=== PATIENT | male | born 1970 | race Caucasian/White ===

== ENCOUNTER 2020-12-29 03:11 | Inpatient (IN) | payer BC, SELFPAY ==
[2020-12-29] MEDS ORDERED: NA CHLORIDE 0.9% 2,000 ML ONE (03:42)
[2020-12-29 04:03] LABS: Absolute Lymphocytes (CBC) 1.3 K/uL (0.7-4.9); Basophils % 0.8 % (0-1.3); Lymphocytes % 21.7 % (15.3-44.8); MPV 8.2 fL (7.6-11.3); RBC Red Blood Cell Count 4.68 M/uL (4.33-5.43)
[2020-12-29] MEDS ORDERED: NA CHLORIDE 0.9% 1,000 ML ONE (04:12)
[2020-12-29] MEDS ORDERED: CEFTRIAXONE 1000 MG/VIAL ONE (04:19)
[2020-12-29] MEDS ORDERED: ACETAMINOPHEN 500 MG TAB ONE (04:19)
[2020-12-29] MEDS ORDERED: AZITHROMYCIN 500 MG INJ IVPB ONE (04:20)
[2020-12-29] MEDS ORDERED: NA CHLORIDE 0.9% 100 ML ONE (04:20)
[2020-12-29 04:22] LABS: BUN Blood Urea Nitrogen 7 mg/dL (7-18); Bicarbonate 25 mmol/L (21-32); Glucose Level 240 mg/dL (74-106); Potassium 3.5 mmol/L (3.5-5.1); Sodium Level 133 mmol/L (136-145); Troponin (Emerg Dept Use Only) < 0.02 ng/mL (0.0-0.045)
[2020-12-29] MEDS ORDERED: METHYLPREDNISOLONE 125 MG INJ ONE (04:58)
--- NOTE | 2020-12-29 04:58 | EDPHYS ---
Physician Documentation [facility] Name: Rigo Harmon Age: 50 yrs Sex: Male : 1970 Arrival Date: 12/29/2020 Time: 03:13 Bed 16 Private MD: ED Physician Vinnie Solano HPI: 12/29 03:40 This 50 yrs old Male presents to ER via Unassigned with complaints of rn Breathing Difficulty. 03:40 The patient has shortness of breath at rest, with light activity. Onset: The rn symptoms/episode began/occurred 2 day(s) ago. Duration: The symptoms are continuous. The patient's shortness of breath is aggravated by coughing, light activity, is alleviated by nothing. Associated signs and symptoms: Pertinent positives: productive cough, dizziness, fever, Pertinent negatives: chest pain, hemoptysis. Severity of symptoms: At their worst the symptoms were moderate in the emergency department the symptoms are unchanged. The patient has not experienced similar symptoms in the past. The patient has not recently seen a physician. Patient reports fever and cough for 2 days, does not feel well, dizziness and fatigue. Denies sick contacts. Denies smoking history or lung problems. Does state is a daily heavy drinker but states drink 8 beers today. Denies vomiting or diarrhea. No history of DVT or PE. No trauma. Historical: - Home Meds: 03:30 amlodipine 5 mg tab 1 tab once daily [Active]; metformin 500 mg Oral tr24 1 tab twice a dc2 day [Active]; valsartan-hydrochlorothiazide 320-12.5 mg Oral tab 1 tab once daily [Active]; - PMHx: 03:30 Diabetes - NIDDM; Hypertension; dc2 - Immunization history:: Adult Immunizations up to date, Client reports having NOT received the Covid vaccine. Flu vaccine is not up to date. - Family history:: not pertinent. - Social history:: Smoking status: Patient/guardian denies using tobacco, the patient reports quitting approximately 5 years ago. - Hospitalizations: : No recent hospitalization is reported. ROS: 03:40 Constitutional: + for fever Eyes: Negative for injury, pain, redness, and discharge, application development intern: Negative for injury, pain, and discharge, Neck: Negative for injury, pain, and swelling, Cardiovascular: Negative for chest pain, palpitations, and edema, Respiratory: Positive for cough and shortness of breath Abdomen/GI: Negative for abdominal pain, nausea, vomiting, diarrhea, and constipation, Back: Negative for injury and pain, MS/Extremity: Negative for injury and deformity, Skin: Negative for injury, rash, and discoloration, Neuro: Negative for headache, numbness, tingling, and seizure. Exam: 03:40 Constitutional: This is a well developed, well nourished patient who is awake, alert, rn mild tachypnea Head/Face: Normocephalic, atraumatic. Eyes: Periorbital areas with no swelling, redness, or edema. ENT: No stridor, dry mucous membranes Cardiovascular: Tachycardic, regular. Respiratory: Mild tachypnea, diminished breath sounds bilateral bases, no wheezing, no retractions Abdomen/GI: Soft, non-tender Skin: Warm, dry, no cyanosis MS/ Extremity: Pulses equal, no cyanosis. Neurovascular intact. Full, normal range of motion. Equal circumference. Neuro: Awake and alert, GCS 15 Vital Signs: 03:20 BP 180 / 107; Pulse 117; Resp 22; Temp 101.4; Pulse Ox 90% on R/A; Weight 99.79 kg; dc2 Height 5 ft. 10 in. (177.80 cm); Pain 0/10; 04:15 BP 183 / 96; Pulse 101; Resp 19; Pulse Ox 94% on 2 lpm NC; Pain 10/10; dc2 05:15 BP 158 / 81; Pulse 101; Resp 22; Temp 98.4; Pulse Ox 94% on 2 lpm NC; Pain 0/10; dc2 03:20 Body Mass Index 31.57 (99.79 kg, 177.80 cm) dc2 MDM: 03:16 Patient medically screened. rn 04:22 Differential diagnosis: Anxiety Reaction pneumonia, Pneumothorax Sepsis ETOH rn withdrawal. Data reviewed: vital signs, nurses notes, lab test result(s), radiologic studies, plain films. Data interpreted: Pulse oximetry: on room air is 90 %. Interpretation: hypoxia. Plan: O2 by NC applied. 04:56 Counseling: I had a detailed discussion with the patient and/or guardian regarding: the rn historical points, exam findings, and any diagnostic results supporting the discharge/admit diagnosis, lab results, radiology results, the need for further work-up and treatment in the hospital. Response to treatment: the patient's symptoms have mildly improved after treatment, and as a result, I will admit patient. Admission orders: after a detailed discussion of the patient's condition and case, the admit orders are written by me. 12/29 03:33 Order name: Basic Metabolic Panel 12/29 03:33 Order name: Blood Culture Adult (2) rn 12/29 03:33 Order name: CBC with Diff; Complete Time: 04:12 12/29 03:33 Order name: Lactate; Complete Time: 04:49 rn 12/29 03:33 Order name: Procalcitonin; Complete Time: 04:49 12/29 03:33 Order name: Troponin (emerg Dept Use Only) rn 12/29 03:33 Order name: Urine Microscopic Only 12/29 03:33 Order name: Strep 12/29 03:34 Order name: Basic Metabolic Panel EDCO 12/29 03:58 Order name: Glucose, Ancillary Testing; Complete Time: 04:12 EDCO 12/29 04:08 Order name: COVID-19/FLU A+B [facility] 12/29 05:01 Order name: CRP [facility] 12/29 03:33 Order name: Chest Single View XRAY 12/29 03:33 Order name: Accucheck; Complete Time: 03:59 12/29 03:33 Order name: Cardiac monitoring; Complete Time: 03:36 12/29 03:33 Order name: EKG - Nurse/Tech; Complete Time: 03:36 12/29 03:33 Order name: IV Saline Lock - Large Bore; Complete Time: 03:59 rn 12/29 05:01 Order name: DD la1 12/29 05:04 Order name: C-Reactive Protein [facility] 12/29 05:04 Order name: Ferritin [facility] 12/29 03:33 Order name: Labs collected and sent; Complete Time: 03:59 rn 12/29 03:33 Order name: O2 Per Protocol; Complete Time: 03:36 rn 12/29 03:33 Order name: O2 Sat Monitoring; Complete Time: 03:36 rn Administered Medications: 03:40 Drug: NS 0.9% (30 ml/kg) 30 ml/kg Route: IV; Rate: bolus; Site: left forearm; Delivery: dc2 Primary tubing; 05:30 Follow up: IV Status: Infusion continued upon admission; IV Intake: 2000ml dc2 04:20 Drug: Rocephin (cefTRIAXone) 1 grams Route: IV; Rate: calculated rate; Site: left dc2 antecubital; 05:07 Follow up: IV Status: Completed infusion; IV Intake: 10ml dc2 04:22 Drug: Tylenol 1000 mg Route: PO; dc2 05:07 Follow up: Response: Temperature is decreased dc2 04:23 Drug: Zithromax (azithromycin) 500 mg Route: IVPB; Rate: 100 ml/hr; Infused Over: 1 dc2 hrs; Site: left antecubital; Delivery: Primary tubing; 05:25 Follow up: IV Status: Completed infusion; IV Intake: 100ml dc2 05:00 Drug: SOLU-Medrol (methylPrednisoLONE) 125 mg Route: IVP; Site: left antecubital; dc2 05:07 Follow up: Response: No adverse reaction dc2 Disposition Summary: 12/29/20 04:57 Hospitalization Ordered Hospitalization Status: Inpatient Admission rn Condition: Stable rn Problem: new rn Symptoms: have improved rn Bed/Room Type: Standard rn Provider: Khang Solano(12/29/20 04:57) rn Location: Intensive Care Unit(12/29/20 05:11) mw Room Assignment: 1-(12/29/20 05:11) Diagnosis - Hypoxemia rn - Fever, unspecified rn - Pneumonia due to SARS-associated coronavirus rn Forms: - Medication Reconciliation Form rn - SBAR form rn Signatures: Dispatcher [employer] EDMS Liberty Batista RN RN Vinnie Solano MD MD rn Attema, Lee, CAP PARTS CUTTER-C CAP PARTS CUTTER-Cla1 SusieNaz RN RN dc2 Corrections: (The following items were deleted from the chart) 04:07 03:34 Influenza Screen (A \T\ B)+BA.LAB.BRZ ordered. EDMS EDMS 04:08 03:34 SARS-COV-2 RT PCR+MOL.LAB.BRZ ordered. EDMS EDMS 04:57 04:57 Kleber Neely rn rn 05:03 05:01 C-Reactive Protein ordered. EDMS EDMS 05:03 05:01 FERRITIN+C.LAB.BRZ ordered. EDMS EDMS 05:03 04:57 Telemetry/MedSurg (Inpatient) rn mw 05:03 04:57 rn mw 05:03 04:57 Pneumonia, unspecified organism rn rn 05:11 05:03 [facility] ER HOLD mw mw 05:11 05:03 ERHOLD- mw
--- NOTE | 2020-12-29 04:58 | ER ---
Nurse's Notes [facility] Name: Rigo Harmon Age: 50 yrs Sex: Male : 1970 Arrival Date: 12/29/2020 Time: 03:13 Bed 16 Private MD: Diagnosis: Hypoxemia;Fever, unspecified;Pneumonia due to SARS-associated coronavirus Presentation: 12/29 03:18 Chief complaint: Pt ambulate to room 16 with steady gait, female at side. dc2 03:20 Method Of Arrival: Ambulatory dc2 03:20 Coronavirus screen: Vaccine status: Patient reports being unvaccinated. cough unrelated dc2 to allergies, difficulty breathing, fever, nausea, shortness of breath, Client presents with at least one sign or symptom that may indicate coronavirus-19. Standard/surgical mask placed on the client. Provider contacted for isolation considerations. Ebola Screen: Patient negative for fever greater than or equal to 101.5 degrees Fahrenheit, and additional compatible Ebola Virus Disease symptoms Patient denies exposure to infectious person. Patient denies travel to an Ebola-affected area in the 21 days before illness onset. No symptoms or risks identified at this time. Initial Sepsis Screen: Does the patient meet any 2 criteria? Yes Does the patient have a suspected source of infection? Yes:. Risk Assessment: Do you want to hurt yourself or someone else? Patient reports no desire to harm self or others. 03:20 Acuity: LELE 3 dc2 03:30 Onset of symptoms was December 27, 2020 at 12:00. dc2 Triage Assessment: 03:30 General: Appears uncomfortable, obese, well groomed, Behavior is calm, cooperative. dc2 03:30 Respiratory: Reports shortness of breath cough that is labored breathing Airway is dc2 patent Breath sounds are diminished bilaterally. Onset: The symptoms/episode began/occurred yesterday, the patient has moderate shortness of breath. 03:30 Respiratory: Breath sounds with wheezes. dc2 05:30 Pain: Denies pain. dc2 Historical: - Home Meds: 03:30 amlodipine 5 mg tab 1 tab once daily [Active]; metformin 500 mg Oral tr24 1 tab twice a dc2 day [Active]; valsartan-hydrochlorothiazide 320-12.5 mg Oral tab 1 tab once daily [Active]; - PMHx: 03:30 Diabetes - NIDDM; Hypertension; dc2 - Immunization history:: Adult Immunizations up to date, Client reports having NOT received the Covid vaccine. Flu vaccine is not up to date. - Family history:: not pertinent. - Social history:: Smoking status: Patient/guardian denies using tobacco, the patient reports quitting approximately 5 years ago. - Hospitalizations: : No recent hospitalization is reported. Screenin:30 Abuse screen: Denies threats or abuse. Denies injuries from another. Nutritional dc2 screening: No deficits noted. Tuberculosis screening: No symptoms or risk factors identified. Never had TB. Fall Risk None identified. No fall in past 12 months (0 pts). Secondary diagnosis (15 points) No IV (0 pts). Ambulatory Aid- None/Bed Rest/Nurse Assist (0 pts). Gait- Normal/Bed Rest/Wheelchair (0 pts) Mental Status- Oriented to own ability (0 pts). Total Tay Fall Scale indicates No Risk (0-24 pts). Assessment: 03:25 Respiratory: Airway is patent Respiratory effort is even, unlabored, using tripod dc2 position, Breath sounds with wheezes bilaterally. 03:30 Cardiovascular: Rhythm is sinus tachycardia. dc2 03:30 Respiratory: Respiratory effort is even, unlabored, shallow, using tripod position. dc2 03:30 General: Appears in no apparent distress. uncomfortable, obese, well groomed, Behavior dc2 is calm, cooperative. Pain: Denies pain. Neuro: No deficits noted. Level of Consciousness is awake, alert, obeys commands, confused, Oriented to person, place, time, situation, Denies blurred vision headache. GI: No deficits noted. No signs and/or symptoms were reported involving the gastrointestinal system. Bowel sounds present X 4 quads. : No signs and/or symptoms were reported regarding the genitourinary system. Derm: No deficits noted. No signs and/or symptoms reported regarding the dermatologic system. Musculoskeletal: No deficits noted. No signs and/or symptoms reported regarding the musculoskeletal system. 03:30 Reassessment: Pt with history of HTN and DM, states has not taken any meds for the past dc2 2 weeks, when asked why, states " theyre at the pharmacy waiting to be picked up ". 03:45 Reassessment: 3 swabs for flu, strep and covid completed and sent to lab. ( [id number]). dc2 04:15 Reassessment: Lab called for phlebotomy assistance with blood cultures. Speak to Liberty santana , states someone will be by. 05:15 Reassessment: Pt instructed on need for urine sample, voices understanding. Urinal and dc2 cup at bedside. 05:15 Reassessment: Pt has received 2l of 3 bolus of normal saline in the ED, transfer to ICU dc2 with 1 full bag of NS to be infused, NIKA Hunter receiving nurse made aware. Vital Signs: 03:20 BP 180 / 107; Pulse 117; Resp 22; Temp 101.4; Pulse Ox 90% on R/A; Weight 99.79 kg; dc2 Height 5 ft. 10 in. (177.80 cm); Pain 0/10; 04:15 BP 183 / 96; Pulse 101; Resp 19; Pulse Ox 94% on 2 lpm NC; Pain 10/10; dc2 05:15 BP 158 / 81; Pulse 101; Resp 22; Temp 98.4; Pulse Ox 94% on 2 lpm NC; Pain 0/10; dc2 03:20 Body Mass Index 31.57 (99.79 kg, 177.80 cm) dc2 Vitals: 05:00 Cardiac Rhythm Assessment Sinus tach. dc2 ED Course: 03:13 Patient arrived in ED. mw2 03:16 Vinnie Solano MD is Attending Physician. rn 03:16 Naz Richards RN is Primary Nurse. dc2 03:30 No provider procedures requiring assistance completed. dc2 03:30 Arm band placed on right wrist. dc2 03:30 Patient has correct armband on for positive identification. Placed in gown. Bed in low dc2 position. Call light in reach. Side rails up X 1. Adult w/ patient. monitoring specialist on. Pulse ox on. NIBP on. Door closed. 03:38 X-ray(s) taken. dc2 03:58 Strep Sent. dc2 03:59 Basic Metabolic Panel Sent. dc2 03:59 Chest Single View XRAY Sent. dc2 03:59 Basic Metabolic Panel Sent. dc2 03:59 CBC with Diff Sent. dc2 03:59 Troponin (emerg Dept Use Only) Sent. dc2 03:59 Lactate Sent. dc2 03:59 Procalcitonin Sent. dc2 04:02 Chest Single View XRAY In Process Unspecified. EDMS 04:04 Blood Culture Adult (2) Sent. dc2 04:38 Triage completed. dc2 04:52 Admitting physician to see patient. dc2 04:56 Kleber Neely DO is Hospitalizing Provider. rn 04:57 Khang Solano MD is Hospitalizing Provider. rn 05:15 IV is patent, with fluids infusing freely, Patient admitted, IV remains in place. dc2 Administered Medications: 03:40 Drug: NS 0.9% (30 ml/kg) 30 ml/kg Route: IV; Rate: bolus; Site: left forearm; Delivery: dc2 Primary tubing; 05:30 Follow up: IV Status: Infusion continued upon admission; IV Intake: 2000ml dc2 04:20 Drug: Rocephin (cefTRIAXone) 1 grams Route: IV; Rate: calculated rate; Site: left dc2 antecubital; 05:07 Follow up: IV Status: Completed infusion; IV Intake: 10ml dc2 04:22 Drug: Tylenol 1000 mg Route: PO; dc2 05:07 Follow up: Response: Temperature is decreased dc2 04:23 Drug: Zithromax (azithromycin) 500 mg Route: IVPB; Rate: 100 ml/hr; Infused Over: 1 dc2 hrs; Site: left antecubital; Delivery: Primary tubing; 05:25 Follow up: IV Status: Completed infusion; IV Intake: 100ml dc2 05:00 Drug: SOLU-Medrol (methylPrednisoLONE) 125 mg Route: IVP; Site: left antecubital; dc2 05:07 Follow up: Response: No adverse reaction dc2 Intake: 05:07 IV: 10ml; Total: 10ml. dc2 05:25 IV: 100ml; Total: 110ml. dc2 05:30 IV: 2000ml; Total: 2110ml. dc2 Outcome: 04:57 Decision to Hospitalize by Provider. rn 05:20 Admitted to ICU accompanied by tech, via stretcher, room ICU 1, with oxygen, with dc2 chart, Report called to NIKA Hunter 05:20 Condition: improved 05:20 Instructed on the need for admit. 05:31 Patient left the ED. dc2 Signatures: Dispatcher [employer] EDMS Vinnie Solano MD MD rn [place]brook, MyKena mw2 Susie, Naz, RN RN dc2 Corrections: (The following items were deleted from the chart) 04:07 03:58 Influenza Screen (A \\T\\ B)+BA.LAB.BRZ drawn and sent. dc2 EDMS 04:08 03:59 SARS-COV-2 RT PCR+MOL.LAB.BRFrancois drawn and sent. dc2 EDMS 05:06 03:30 Respiratory: Airway is patent Breath sounds are clear bilaterally. dc2 dc2
[2020-12-29 05:07] LABS: SARS-COV-2 RT PCR POSITIVE (NEGATIVE)
--- NOTE | 2020-12-29 05:11 | P.HP ---
Certification for Inpatient Patient admitted to: Inpatient With expected LOS: >2 Midnights Patient will require the following post-hospital care: None Practitioner: I am a practitioner with admitting privileges, knowledge of patient current condition, hospital course, and medical plan of care. Services: Services provided to patient in accordance with Admission requirements found in Title 42 Section 412.3 of the Code of Federal Regulations <Suhas Leal - Last Filed: 12/29/20 05:07> Patient History Date of Service: 12/29/20 Primary Care Provider: None Reason for admission: COVID-19 pneumonia History of Present Illness: 50-year-old male with history of hypertension, diabetes mellitus type 2 presents emerge department for shortness of breath. Patient reports ongoing shortness of breath increasing over the course of the last 1 to 2 days. Patient was evaluated in the emergency department labs were significant for platelet count 125 sodium 133 chloride 94 glucose 240 lactic acid 2.6 procalcitonin 0.08 glucose 234 Covid positive chest x-ray appears to demonstrate mild bilateral pneumonia. Patient febrile to 101.4, mildly hypoxic with saturations in the high 80s to low 90s on room air. ED provider wishes to admit for further evaluation and management of COVID-19 pneumonia. Patient also admits to drinking between 8 and 10 beers per day, last drink was last night. Patient denies any previous bouts of alcohol withdrawal. - Past Medical/Surgical History Diabetic: Yes -: Hypertension -: Diabetes mellitus type 2 -: Alcohol abuse -: appendectomy -: Right knee surgery Psychosocial/ Personal History: Patient lives at home with his spouse - Family History Father -: Hypertension - Social History Smoking Status: Never smoker Alcohol use: Yes Caffeine use: Yes Place of Residence: Home <Suhas Leal - Last Filed: 12/29/20 05:07> Date of Service: 12/29/20 <Khang Solano - Last Filed: 12/29/20 13:04> Allergies No Known Allergies Allergy (Verified 12/29/20 05:56) Home Medications: Metformin HCl [Glucophage*] 500 mg PO LUNCH 11/09/16 Amlodipine Besylate 10 mg PO BEDTIME 12/29/20 Buprenorphine HCl/Naloxone HCl [Suboxone 8 mg-2 mg Sl Film] 0.5 strip SL DAILY 12/29/20 Glipizide [Glipizide ER] 5 mg PO DAILY AT SUPPER 12/29/20 Labetalol HCl [Trandate] 300 mg PO BID 12/29/20 Metoprolol Succinate 100 mg PO BID 12/29/20 Valsartan/Hctz 320mg/25mg 1 tab PO DAILY 12/29/20 Review of Systems 10-point ROS is otherwise unremarkable General: Fever, Chills, Weakness, Malaise Respiratory: Cough, Dry, Shortness of Breath, SOB with Excertion, Wheezing, As per HPI <Suhas Lela - Last Filed: 12/29/20 05:07> Physical Examination - Physical Exam General: Alert, In no apparent distress, Oriented x3 HEENT: Atraumatic, PERRLA, Mucous membr. moist/pink, EOMI, Sclerae nonicteric Neck: Supple, 2+ carotid pulse no bruit, No LAD, Without JVD or thyroid abnormality Respiratory: Normal air movement, Expiratory wheezes Cardiovascular: Regular rate/rhythm, Normal S1 S2 Gastrointestinal: Normal bowel sounds, No tenderness Musculoskeletal: No tenderness Integumentary: No rashes Neurological: Normal gait, Normal speech, Normal strength at 5/5 x4 extr, Normal tone, Normal affect Lymphatics: No axilla or inguinal lymphadenopathy - Studies Laboratory Data (last 24 hrs) 12/29/20 03:40: WBC 6.00, Hgb 14.8, Hct 43.0, Plt Count 125 L 12/29/20 03:40: Sodium 133 L, Potassium 3.5, BUN 7, Creatinine 0.72, Glucose 240 H Microbiology Data (last 24 hrs): 12/29/20 03:45 Throat Group A Streptococcus Rapid Screen - Final <Suhas Leal - Last Filed: 12/29/20 05:07> - Studies Laboratory Data (last 24 hrs) 12/29/20 03:40: WBC 6.00, Hgb 14.8, Hct 43.0, Plt Count 125 L 12/29/20 03:40: Sodium 133 L, Potassium 3.5, BUN 7, Creatinine 0.72, Glucose 240 H, Magnesium 1.8 Microbiology Data (last 24 hrs): 12/29/20 03:45 Throat Group A Streptococcus Rapid Screen - Final <Khang Solano - Last Filed: 12/29/20 13:04> Assessment and Plan - Plan Assessment: Acute hypoxic respiratory failure secondary to COVID-19 pneumonia Dyspnea with expiratory wheezing suspect underlying asthma with exacerbation Hypertension Diabetes mellitus type 2 with hyperglycemia Alcohol abuse Plan: Acute hypoxic respiratory failure secondary to COVID-19 pneumonia: Patient requ iring nasal cannula at this time, will obtain CRP/ferritin/D-dimer levels. Continue with IV steroids, oral supplements, baricitinib if patient qualifies. Pulmonology/respiratory therapy consulted. Anticipate clinical improvement and discharge on home oxygen in the next 48 to 72 hours. Dyspnea with expiratory wheezing suspect underlying asthma with exacerbation: Patient Covid positive but noted to have expiratory wheezing, in the past has been told he may have asthma and was prescribed inhalers that he has never had filled in the past. Will provide patient with IV steroids and as needed inhaler treatments given Covid positive status. Hypertension: Obtain and continue medications Diabetes mellitus type 2 with hyperglycemia: Obtain and continue medication, ACH is Accu-Chek, sliding scale insulin therapy. Alcohol abuse: Patient admits to drinking around 8-10 beers per day last drink was 12/29/2019 1 in the evening. Will monitor for alcohol withdrawal and provide medication as needed. DVT PPX: Lovenox Code status: Full Discharge Plan: Home Plan to discharge in: Greater than 2 days - Advance Directives Does patient have a Living Will: No Does patient have a Durable POA for Healthcare: No - Code Status/Comfort Care Code Status Assessed: Yes (Full code) Critical Care: No Time Spent Managing Pts Care (In Minutes): 55 <Suhas Leal - Last Filed: 12/29/20 05:07> - Plan Patient seen and examined on rounds this morning. Reports some slight improvements in breathing and overall feeling. Labs still pending this morning. On 2 L nasal cannula If continues to do well, hopefully can discharge home tomorrow with oxygen <Khang Solano - Last Filed: 12/29/20 13:04>
[2020-12-29] MEDS ORDERED: ACETAMINOPHEN 500 MG TAB PO PRN (05:27)
[2020-12-29] MEDS ORDERED: BENZONATATE 100 MG CAP PO PRN (05:27)
[2020-12-29] MEDS ORDERED: ALBUTEROL INHALER 60 PUFF/8 GM IH PRN (05:27)
[2020-12-29] MEDS ORDERED: MELATONIN 5 MG TABLET PO PRN (05:27)
[2020-12-29] MEDS ORDERED: ONDANSETRON 4 MG/2 ML VIAL IV PRN (05:27)
[2020-12-29 06:08] VITALS: BMI 31.6
[2020-12-29 06:23] LABS: Magnesium 1.8 mg/dL (1.8-2.4)
[2020-12-29] MEDS: INSULIN -REGULAR HUMAN 50 UNIT/0.5 ML ML SQ SCH ×4 (08:07→20:29)
[2020-12-29] MEDS: ASPIRIN EC 81 MG TAB PO SCH (08:09)
[2020-12-29] MEDS: THIAMINE HCL 100 MG TABLET PO SCH (08:09)
[2020-12-29] MEDS: VITAMIN D 1000 UNIT TAB PO SCH (08:09)
[2020-12-29] MEDS: ZINC SULFATE 220 MG CAP PO SCH (08:09)
[2020-12-29] MEDS: ASCORBIC ACID 500 MG TABLET PO SCH ×4 (08:09→20:30)
[2020-12-29] MEDS: ENOXAPARIN 40 MG/0.4 ML SQ SCH (08:10)
[2020-12-29] MEDS ORDERED: MAGNESIUM SULFATE 1 gm IVPB 1 GM/100 ML BAG IV ONE (09:00)
[2020-12-29] MEDS ORDERED: METHYLPREDNISOLONE 40 MG INJ IV SCH (09:00)
[2020-12-29] MEDS ORDERED: POTASSIUM CL SA 10 MEQ TAB PO ONE (09:00)
--- NOTE | 2020-12-29 09:08 | RAD REPORT ---
EXAM DESCRIPTION: RAD - Chest Single View - 12/29/2020 4:02 am CLINICAL HISTORY: Cough;Fever Chest pain. COMPARISON: CHEST SINGLE VIEW dated 11/21/2013 FINDINGS: Portable technique limits examination quality. Small opacity is seen in the left lung base suggesting a early infiltrate. The heart is normal in siz e. No displaced fractures. IMPRESSION: Small developing pneumonia possible left base.
--- NOTE | 2020-12-29 12:15 | P.CNS ---
Date of Consult: 12/29/20 Reason for Consult: Hardy virus pneumonia Primary Care Provider: None Chief Complaint: COVID-19 pneumonia History of Present Illness: Patient is 50 years of age with metabolic syndrome admitted with shortness of breath worse over the past 2 days is found to be mildly hypoxic bilateral pneumonia he also drinks every day doing better on 2 L on nasal cannula oxygen Allergies No Known Allergies Allergy (Verified 12/29/20 05:56) Home Medications: Metformin HCl [Glucophage*] 500 mg PO LUNCH 11/09/16 Amlodipine Besylate 10 mg PO BEDTIME 12/29/20 Buprenorphine HCl/Naloxone HCl [Suboxone 8 mg-2 mg Sl Film] 0.5 strip SL DAILY 12/29/20 Glipizide [Glipizide ER] 5 mg PO DAILY AT SUPPER 12/29/20 Labetalol HCl [Trandate] 300 mg PO BID 12/29/20 Metoprolol Succinate 100 mg PO BID 12/29/20 Valsartan/Hctz 320mg/25mg 1 tab PO DAILY 12/29/20 - Past Medical/Surgical History Diabetic: Yes -: Hypertension -: Diabetes mellitus type 2 -: Alcohol abuse -: appendectomy -: Right knee surgery Psychosocial/ Personal History: Patient lives at home with his spouse - Family History Father Medical History: Hypertension - Social History Alcohol use: Yes CD- Drugs: No Caffeine use: Yes Place of Residence: Home Review of Systems General: Weakness Respiratory: Shortness of Breath Physical Examination Temp Pulse Resp BP Pulse Ox 97.2 F 71 17 157/89 H 96 12/29/20 08:00 12/29/20 11:00 12/29/20 11:00 12/29/20 11:00 12/29/20 11:00 General: Alert, In no apparent distress, Oriented x3 Laboratory Data (last 24 hrs) 12/29/20 03:40: WBC 6.00, Hgb 14.8, Hct 43.0, Plt Count 125 L 12/29/20 03:40: Sodium 133 L, Potassium 3.5, BUN 7, Creatinine 0.72, Glucose 240 H, Magnesium 1.8 - Problems (1) Pneumonia due to coronavirus disease 2018 Current Visit: Yes Status: Acute Plan: Patient is 50 years of age admitted with pneumonia due to coronal wire a tested positive minimal changes on the chest x-ray medication list reviewed will not qualify for BArcitinib possible discharge in 1 or 2 days
[2020-12-29] MEDS ORDERED: IVERMECTIN 3 MG TABLET PO ONE (12:16)
[2020-12-29] MEDS: METHYLPREDNISOLONE 125 MG INJ IV SCH (20:29)
[2020-12-29] MEDS: LABETALOL HCL 100 MG TAB PO SCH (20:31)
[2020-12-29] MEDS ORDERED: METOPROLOL XL 50 MG TAB PO ONE (20:31)
[2020-12-29] MEDS: METOPROLOL XL 100 MG TAB PO SCH (20:32)
[2020-12-29] MEDS ORDERED: AMLODIPINE 10 MG TAB PO SCH (21:00)
[2020-12-29] MEDS ORDERED: LABETALOL HCL 300 MG PO SCH (21:00)
[2020-12-30] MEDS ORDERED: FAMOTIDINE 20 MG/2 ML VIAL IV PRN (02:17)
[2020-12-30 04:57] LABS: Absolute Lymphocytes (CBC) 1.3 K/uL (0.7-4.9); Basophils % 0.2 % (0-1.3); Hematocrit 42.7 % (39.6-49.0); Lymphocytes % 13.3 % (15.3-44.8); MPV 8.8 fL (7.6-11.3); RBC Red Blood Cell Count 4.46 M/uL (4.33-5.43)
[2020-12-30 05:19] LABS: Bilirubin Total 0.4 mg/dL (0.2-1.0); Potassium 4.7 mmol/L (3.5-5.1)
[2020-12-30 05:20] LABS: Albumin 2.8 g/dL (3.4-5.0); C-Reactive Protein 95.3 mg/L (<3.00); Ferritin 632.1 ng/mL (26-388); Magnesium 2.3 mg/dL (1.8-2.4); Protein, Total 6.8 g/dL (6.4-8.2); Thyroid Stimulating Hormone 1.14 uIU/mL (0.360-3.740)
[2020-12-30] MEDS: INSULIN -REGULAR HUMAN 50 UNIT/0.5 ML ML SQ SCH (08:14)
[2020-12-30] MEDS: ASPIRIN EC 81 MG TAB PO SCH (08:15)
[2020-12-30] MEDS: THIAMINE HCL 100 MG TABLET PO SCH (08:15)
[2020-12-30] MEDS: VITAMIN D 1000 UNIT TAB PO SCH (08:15)
[2020-12-30] MEDS: LABETALOL HCL 100 MG TAB PO SCH (08:15)
[2020-12-30] MEDS: ASCORBIC ACID 500 MG TABLET PO SCH (08:15)
[2020-12-30] MEDS: METHYLPREDNISOLONE 125 MG INJ IV SCH (08:15)
[2020-12-30] MEDS: ENOXAPARIN 40 MG/0.4 ML SQ SCH (08:15)
[2020-12-30] MEDS: ZINC SULFATE 220 MG CAP PO SCH (08:16)
[2020-12-30 08:17] VITALS: BP 110/83
[2020-12-30 08:38] VITALS: O2SAT 98
--- NOTE | 2020-12-30 08:59 | P.DS ---
Admission Date: 12/29/20 Discharge Date: 12/30/20 Primary Care Provider: None Disposition: ROUTINE DISCHARGE Discharge Condition: GOOD Reason for Admission: COVID-19 pneumonia Consultations: Pulmonology - Dr. Bee Procedures: CXR (12/29): Small opacity is seen in the left lung base suggesting a early infiltrate. The heart is normal in size. No displaced fractures. IMPRESSION: Small developing pneumonia possible left base. Problem list Acute hypoxic respiratory failure secondary to COVID-19 pneumonia Dyspnea with expiratory wheezing suspect underlying asthma with exacerbation Hypertension Diabetes mellitus type 2 with hyperglycemia Alcohol abuse Brief History of Present Illness: 50-year-old male with history of hypertension, diabetes mellitus type 2 presents emerge department for shortness of breath. Patient reports ongoing shortness of breath increasing over the course of the last 1 to 2 days. Patient was evaluated in the emergency department labs were significant for platelet count 125 sodium 133 chloride 94 glucose 240 lactic acid 2.6 procalcitonin 0.08 glucose 234 Covid positive chest x-ray appears to demonstrate mild bilateral pneumonia. Patient febrile to 101.4, mildly hypoxic with saturations in the high 80s to low 90s on room air. ED provider wishes to admit for further evaluation and management of COVID-19 pneumonia. Patient also admits to drinking between 8 and 10 beers per day, last drink was last night. Patient denies any previous bouts of alcohol withdrawal. Hospital Course: Patient had improvement in his symptoms treatment with steroids, vitamin supplementation, and oxygen supplementation. He was able to be weaned off oxygen, unable to ambulate without hypoxia on room air. He was feeling better and deemed stable for discharge home. He did not require oxygen supplementation on discharge home He is to continue treatment with steroids, vitamin supplementation, and advised to take aspirin 81 mg daily for 1 month. Follow-up with pulmonology in 1 week. Vital Signs/Physical Exam: Temp Pulse Resp BP Pulse Ox 97.1 F 63 16 110/83 94 12/30/20 04:00 12/30/20 08:15 12/30/20 04:00 12/30/20 08:15 12/30/20 04:00 General: Alert, In no apparent distress, Oriented x3 HEENT: Mucous membr. moist/pink, Sclerae nonicteric Respiratory: Diminished (At bases bilaterally), Other (Nonlabored respirations on room air) Cardiovascular: No edema, Regular rate/rhythm Gastrointestinal: Soft and benign, Non-distended, No tenderness Musculoskeletal: No erythema, No tenderness Integumentary: No rashes, No significant lesion Neurological: Normal speech, Normal affect Laboratory Data at Discharge: WBC 9.90 K/uL (4.3-10.9) D 12/30/20 04:25 Hgb 14.1 g/dL (13.6-17.9) 12/30/20 04:25 Hct 42.7 % (39.6-49.0) 12/30/20 04:25 Plt Count 158 K/uL (152-406) D 12/30/20 04:25 Sodium 137 mmol/L (136-145) 12/30/20 04:29 Potassium 4.7 mmol/L (3.5-5.1) 12/30/20 04:29 BUN 14 mg/dL (7-18) 12/30/20 04:29 Creatinine 0.93 mg/dL (0.55-1.3) 12/30/20 04:29 Glucose 335 mg/dL (74-106) H 12/30/20 04:29 Magnesium 2.3 mg/dL (1.8-2.4) D 12/30/20 04:29 Total Bilirubin 0.4 mg/dL (0.2-1.0) 12/30/20 04:29 AST 47 U/L (15-37) H 12/30/20 04:29 ALT 89 U/L (12-78) H 12/30/20 04:29 Alkaline Phosphatase 74 U/L (45-117) 12/30/20 04:29 Triglycerides 39 mg/dL (<150) 12/30/20 04:29 Cholesterol 82 mg/dL (<200) 12/30/20 04:29 HDL Cholesterol 53 mg/dL (40-60) 12/30/20 04:29 Cholesterol/HDL Ratio 1.55 12/30/20 04:29 Home Medications: Metformin HCl [Glucophage*] 500 mg PO LUNCH 11/09/16 Amlodipine Besylate 10 mg PO BEDTIME 12/29/20 Buprenorphine HCl/Naloxone HCl [Suboxone 8 mg-2 mg Sl Film] 0.5 strip SL DAILY 12/29/20 Glipizide [Glipizide ER] 5 mg PO DAILY AT SUPPER 12/29/20 Labetalol HCl [Trandate] 300 mg PO BID 12/29/20 Metoprolol Succinate 100 mg PO BID 12/29/20 Valsartan/Hctz 320mg/25mg 1 tab PO DAILY 12/29/20 Ascorbic Acid [Vitamin C*] 500 mg PO QID 30 Days #120 tablet 12/30/20 Aspirin [Aspirin EC 81 MG] 81 mg PO DAILY 30 Days #30 tablet. 12/30/20 Benzonatate [Tessalon Perle*] 100 mg PO TID PRN 5 Days #15 cap 12/30/20 Cholecalciferol (Vitamin D3) [Vitamin D 1000 Iu Tab*] 4,000 unit PO DAILY 30 Days #120 tab 12/30/20 predniSONE [Prednisone*] 20 mg PO SEECOM 14 Days #21 tab 12/30/20 New Medications: Aspirin [Aspirin EC 81 MG] 81 mg PO DAILY 30 Days #30 tablet. predniSONE [Prednisone*] 20 mg PO SEECOM 14 Days #21 tab Benzonatate [Tessalon Perle*] 100 mg PO TID PRN 5 Days #15 cap PRN Reason: Cough Ascorbic Acid [Vitamin C*] 500 mg PO QID 30 Days #120 tablet Cholecalciferol (Vitamin D3) [Vitamin D 1000 Iu Tab*] 4,000 unit PO DAILY 30 Days #120 tab Physician Discharge Instructions: PROBLEM: (list out Acute Problems for the Current visit) GOAL: Clear understanding of disease process INSTRUCTIONS: You were found to have COVID-19 pneumonia. You had improvement with steroids, vitamin supplementation, and oxygen supplementation. You are discharged home to continue with this treatment. Recommend taking 81mg aspirin daily for 30 days. You improved and did not require any further oxygen supplementation. Follow up with Dr. Bee (Body Fitter) in ~1 week. Call his office to schedule the appointment. Recommend quarantining for an additional 7 days. If you have any questions regarding your hospital stay/medications feel free to call . Diet: ADA Activity: Ad felicia DME DME: Date Ordered: Name of Company: [employer] Services Needed: None Name of Company: Date or Referral: IMMUNIZATION Influenza Vaccine Indicated: No Influenza Vaccine Given: Date Given: Pneumonia Vaccine Indicated: No Pneumonia Vaccine Given: Date Given: Diet: ADA Activity: Ad felicia Followup: Nikunj Bee MD [ACTIVE - CAN ADMIT] - Unknown,U [Primary Care Provider] - Time spent managing pt's care (in minutes): 45
[2020-12-30] MEDS: METOPROLOL XL 100 MG TAB PO SCH (09:00)
[2020-12-30] MEDS ORDERED: BUPRENORPHINE HCL SL SCH (09:00)
[2020-12-30] MEDS ORDERED: NALOXONE HCL SL SCH (09:00)
[2020-12-30 10:25] VITALS: TEMP 98.2
--- NOTE | 2020-12-30 11:23 | EKG ---
Test Date: 2020-12-29 Test Time: 03:24:00 Graphite Disk Assembler: JANNA MEASUREMENT RESULTS: Intervals: Rate: 118 MS: 128 QRSD: 80 QT: 328 QTc: 459 [place]: P: 69 MS: 128 QRS: 0 T: 48 INTERPRETIVE STATEMENTS: Sinus tachycardia Otherwise normal ECG Compared to ECG 11/21/2013 09:32:08 Sinus rhythm no longer present Electronically Signed On 12-30-20 11:20:37 SIZE WORKER by Jaun Scott
== END 2020-12-30 10:05 | disposition home or self-care (01) | DRG 177 ==
LOC: ER 03:11 → ERHOLD 05:04 → 3RD-ICU 05:21
PROVIDERS: ADMIT Hospitalist; ATTEND Hospitalist
DX: U07.1 COVID-19 (principal); J12.82 Pneumonia due to coronavirus disease 2019; J96.01 Acute respiratory failure with hypoxia; J45.901 Unspecified asthma with (acute) exacerbation; F10.10 Alcohol abuse, uncomplicated; E11.65 Type 2 diabetes mellitus with hyperglycemia; E88.81 Metabolic syndrome and other insulin resistance; I10 Essential (primary) hypertension; Z79.84 Long term (current) use of oral hypoglycemic drugs; Z79.899 Other long term (current) drug therapy; Z90.49 Acquired absence of other specified parts of digestive tract; Z79.82 Long term (current) use of aspirin; Z79.52 Long term (current) use of systemic steroids
CPT/HCPCS: 0240U; 36415; 71045; 80048; 80053; 80061; 82728; 82947; 83605; 83735; 84145; 84439; 84443; 84484; 85025; 86140; 87040; 87070; 87081; 93005; 94760; 99285; J0456; J1650; J2920; J2930; J3475; J7030

== ENCOUNTER → 2023-05-04 | Emergency (ER) | payer OTHER, SELFPAY ==
--- NOTE | 2023-05-04 07:48 | EDPHYS ---
Physician Documentation [facility] Name: Rigo Harmon Age: 52 yrs Sex: Male : 1970 Arrival Date: 05/04/2023 Time: 07:24 Bed 6 Private MD: ED Physician Mustapha Malhotra HPI: 05/03 07:44 This 52 yrs old Male presents to ER via Ambulatory with complaints of Skin ec2 Sore(s). 07:44 Patient arrives today for evaluation of a wound to the medial aspect of the left foot. ec2 States that he is out of the window for approximately 1 month and this has not been healing. Patient reports no fevers or chills, no nausea or vomiting, no cough or cold symptoms. States that he has been in normal state of health otherwise. Reports history of diabetes as well as hypertension, on metformin and other hypertensive however is unsure what medication specifically. Has been out of this medication for approximately 1 month.. Historical: - Allergies: 07:27 No Known Allergies; ll1 - PMHx: 07:27 Diabetes - NIDDM; Hypertension; ll1 - Immunization history:: Adult Immunizations up to date. - Social history:: Smoking status: Patient denies any tobacco usage or history of. ROS: 07:44 Constitutional: as per hpi ec2 Exam: 07:44 Constitutional: GEN: NAD Head: atraumatic Eyes: EOMI Ears: External ears are ec2 normal. CV: regular rate LUNGS: no respiratory distress ABD: non-distended SKIN: base of the first digit on the left foot shows erythema and warmth, small wound that has discharge appreciated, no ecchymosis, no crepitus, intact distal neurovascular status with good capillary refill. Erythematous areas approximately 3 to 4 cm in size. MSK: no evidence of trauma NEURO: moves all extremities equally Vital Signs: 07:34 BP 194 / 122; Pulse 95; Resp 17; Temp 97.8; Pulse Ox 100% on R/A; Weight 95.25 kg; ll1 Height 5 ft. 10 in. ; Pain 7/10; 08:07 BP 179 / 104; Pulse 83; Resp 18 S; Pulse Ox 99% on R/A; kc6 07:34 Body Mass Index 30.13 (95.25 kg, 177.8 cm) ll1 07:34 Pain Scale: Adult ll1 MDM: 07:36 Patient medically screened. ec2 07:44 Data reviewed: vital signs. ED course: Patient arrives today for evaluation of a wound. ec2 Examination remarkable for infectious appearing left foot small wound. Patient noted to be hypertensive, has been out of his hypertensive medications for at least a month. Ultimately patient without systemic signs and symptoms to indicate an overwhelming infection, accordingly will defer any lab work such as CBC or BMP. Will start the patient on antibiotics, prescribed his metformin as well as his antihypertensive.. Administered Medications: No medications were administered Disposition Summary: 05/04/23 07:47 Discharge Ordered Notes: Location: Home ec2 Condition: Stable ec2 Diagnosis - Cellulitis of left toe ec2 Followup: ec2 - With: Ananth Emery DO - When: - Reason: Recheck today's complaints Followup: ec2 - With: Walter Ocasio MD - When: - Reason: Wound Recheck Discharge Instructions: - Discharge Summary Sheet ec2 - Cellulitis, Adult ec2 Forms: - Medication Reconciliation Form ec2 - Thank You Letter ec2 - Antibiotic Education ec2 - Prescription Opioid Use ec2 - Patient Portal Instructions ec2 - Leadership Thank You Letter ec2 Prescriptions: - amlodipine 5 mg Oral tablet - take 1 tablet ORAL route daily; 30 tablet; Refills: 0, Product Selection ec2 Permitted - Clindamycin HCl 150 mg Oral capsule - take 3 capsule ORAL route every 8 hours for 7 days; 63 capsule; Refills: 0, ec2 Product Selection Permitted - Metformin 500 mg Oral Tablet, Extended Release 24 hr - take 1 tablet ORAL route once daily with evening meal; 30 tablet; Refills: 0, ec2 Product Selection Permitted Signatures: Debbie Rodriguez RN RN ll1 Mustapha Malhotra MD MD ec2
--- NOTE | 2023-05-04 07:48 | ER ---
Nurse's Notes [facility] Name: Rigo Harmon Age: 52 yrs Sex: Male : 1970 Arrival Date: 05/04/2023 Time: 07:24 Bed 6 Private MD: Diagnosis: Cellulitis of left toe Presentation: 05/03 07:34 Chief complaint: Patient states: Sore to L foot for 1 month, site has been getting ll1 worse for the past 3 days. No fevers. Coronavirus screen: Vaccine status: Patient reports being unvaccinated. Client denies travel out of the [place] in the last 14 days. At this time, the client does not indicate any symptoms associated with coronavirus-19. Ebola Screen: Patient denies travel to an Ebola-affected area in the 21 days before illness onset. Initial Sepsis Screen: Does the patient meet any 2 criteria? HR > 90 bpm. No. Patient's initial sepsis screen is negative. Does the patient have a suspected source of infection? No. Patient's initial sepsis screen is negative. Risk Assessment: Do you want to hurt yourself or someone else? Patient reports no desire to harm self or others. Onset of symptoms was April 05, 2023. 07:34 Method Of Arrival: Ambulatory ll1 07:34 Acuity: LELE 4 ll1 Triage Assessment: 07:35 General: Appears uncomfortable, Behavior is calm, cooperative, appropriate for age. ll1 Pain: Complains of pain in left foot Quality of pain is described as aching. Derm: Abscess located on left foot. Musculoskeletal: Reports pain in left foot. Historical: - Allergies: 07:27 No Known Allergies; ll1 - PMHx: 07:27 Diabetes - NIDDM; Hypertension; ll1 - Immunization history:: Adult Immunizations up to date. - Social history:: Smoking status: Patient denies any tobacco usage or history of. Screenin:46 [facility] ED Fall Risk Assessment (Adult) History of falling in the last 3 months, kc6 including since admission No falls in past 3 months (0 pts) Confusion or Disorientation No (0 pts) Intoxicated or Sedated No (0 pts) Impaired Gait No (0 pts) Mobility Assist Device Used No (0 pt) Altered Elimination No (0 pt) Score/Fall Risk Level 0 - 2 = Low Risk. Abuse screen: Denies threats or abuse. Denies injuries from another. Nutritional screening: No deficits noted. Tuberculosis screening: No symptoms or risk factors identified. Assessment: 08:07 General: Appears in no apparent distress. comfortable, well groomed, well developed, kc6 Behavior is calm, cooperative, appropriate for age. Pain: Complains of pain in left foot. Neuro: Level of Consciousness is awake, alert, obeys commands, Oriented to person, place, time, situation, Appropriate for age. Cardiovascular: Capillary refill < 3 seconds. Respiratory: Airway is patent Trachea midline Respiratory effort is even, unlabored, Respiratory pattern is regular, symmetrical. GI: No signs and/or symptoms were reported involving the gastrointestinal system. : No signs and/or symptoms were reported regarding the genitourinary system. EENT: No signs and/or symptoms were reported regarding the EENT system. Derm: Skin is intact, is healthy with good turgor, Skin is pink, warm \T\ dry. Wound noted medial aspect of left toes. Musculoskeletal: No signs and/or symptoms reported regarding the musculoskeletal system. Circulation, motion, and sensation intact. Capillary refill < 3 seconds, Range of motion: intact in all extremities. Vital Signs: 07:34 BP 194 / 122; Pulse 95; Resp 17; Temp 97.8; Pulse Ox 100% on R/A; Weight 95.25 kg; ll1 Height 5 ft. 10 in. ; Pain 7/10; 08:07 BP 179 / 104; Pulse 83; Resp 18 S; Pulse Ox 99% on R/A; kc6 07:34 Body Mass Index 30.13 (95.25 kg, 177.8 cm) ll1 07:34 Pain Scale: Adult ll1 ED Course: 07:26 Patient arrived in ED. mr 07:27 Arm band placed on Patient placed in an exam room, on a stretcher. ll1 07:29 Harini Hilton RN is Primary Nurse. kc6 07:36 Mustapha Malhotra MD is Attending Physician. ec2 07:36 Triage completed. ll1 07:46 Patient has correct armband on for positive identification. Bed in low position. Call kc6 light in reach. Side rails up X 1. Client placed on continuous cardiac and pulse oximetry monitoring. NIBP monitoring applied. 07:46 Patient maintains SpO2 saturation greater than 95% on room air. kc6 07:47 Ananth Emery DO is Referral Physician. ec2 07:47 Walter Ocasio MD is Referral Physician. ec2 08:08 No provider procedures requiring assistance completed. Patient did not have IV access kc6 during this emergency room visit. Administered Medications: No medications were administered Medication: 08:08 VIS not applicable for this client. kc6 Outcome: 07:47 Discharge ordered by MD. ec2 08:08 Discharged to home ambulatory, kc6 08:08 Condition: good 08:08 Discharge instructions given to patient, Instructed on discharge instructions, follow up and referral plans. medication usage, wound care, Demonstrated understanding of instructions, follow-up care, medications, wound care, Prescriptions given X 3, 08:08 Patient left the ED. kc6 Signatures: Rosa M Muse, Cameron Reg mr MichaelDebbie, RN RN ll1 Harini Hilton RN RN kc6 Mustapha Malhotra MD MD ec2 Corrections: (The following items were deleted from the chart) 07:49 07:34 Acuity: LELE 3 ll1 ll1
[2023-05-04 08:26] VITALS: BP 179/104; TEMP 97.8; O2SAT 99
== END ==
LOC: ER 07:24
DX: L03.032 Cellulitis of left toe (principal)
CPT/HCPCS: 99284